=== PATIENT | female | born 1955 | race Caucasian/White ===

== ENCOUNTER 2017-07-13 05:53 | Inpatient (IN) | payer BC, OTHER ==
[2017-07-13] VITALS (7 sets, daily range): BP systolic 126–146; BP diastolic 59–68
[~2017-07-13] VITALS: Ht 162.6 cm; Wt 57.2 kg
--- NOTE | ~2017-07-13 | S ---
[facility] [place] [address] SURGICAL PATH RPT PROCEDURE Name: MERLY COTTO Room #: 403-P ADM IN M.R.#: [id number] Admission: 07/14/17 Date of : 57 Discharge: Report #: [id number] Path Case #: [id number] PATHOLOGY REPORT COLLECTION DATE: 07/13/2017 RECEIVED DATE: 07/13/2017 SUBMITTING PHYS: Dr. Khai Mota OTHER PHYS: Dr. Ana Ivory SPECIMEN(S) RECEIVED: A.Gallbladder * * * * * * * * * * * * FINAL DIAGNOSIS: Gallbladder, cholecystectomy: - Mild chronic cholecystitis. PATHOLOGIST: Jessica Rossi M.D. REPORT ELECTRONICALLY SIGNED BY: Jessica Rossi M.D. DATE/TIME: 07/14/2017 15:53 * * * * * * * * * * * * GROSS PATHOLOGY: Received in formalin labeled "Merly Cotto gallbladder," is a 6.2 x 3.5 x 1.8 cm, previously opened gallbladder with wrinkled to shaggy, pale weber to green-weber serosal surfaces. Opening the gallbladder reveals a velvety, pale green to yellow-brown mucosa and an average wall thickness of 0.1 cm. Calculi are not present and no masses are noted grossly. Due to the nature of the specimen, the infundibulum cannot be identified grossly. Setter Automatic Spinning Lathe sections from the body and fundus are submitted along with the proximal margin in cassette A1. (DAC; 07/13/2017) CLINICAL HISTORY: Cholecystitis, ureteral calculi INITIAL CPT CODE(S): A; 05010 Professional services performed by [facility] at [facility] [address], [place] [address] Technical services performed by [facility] at [address] [place] [address] [place] [address] SURGICAL PATH RPT PROCEDURE Name: MERLY COTTO Room #: 403-P ADM IN .R.#: [id number] Admission: 07/14/17 Date of : 57 Discharge: Report #: [id number] Path Case #: [id number] [place] [address]. [facility] [address] [place] [address] PHONE: [phone] DIRECTOR: Oliverio Hogan M.D. * * * END OF REPORT * * *
--- NOTE | ~2017-07-13 | O ---
[facility] [place] [address] OPERATIVE REPORT Name: PEDRO LEON Abdifatah Room #: 403-P [facility]..#: [id number] Admission: 07/14/17 Attend Phys: Khai Mota MD Discharge: 07/15/17 Date of : 57 Report #: [id number] THIS REPORT FOR: //name// CC: Deb Mota PREOPERATIVE DIAGNOSIS: Left distal ureteral calculus. POSTOPERATIVE DIAGNOSIS: Left distal ureteral calculus. PROCEDURE PERFORMED: 1. Cystoscopy. 2. Left ureteral dilation. 3. Left ureteroscopy with stone extraction and stent placement. ESTIMATED BLOOD LOSS: None. SPECIMEN: Left ureteral stone. COMPLICATIONS: None. CLINICAL SCENARIO: The patient is a very pleasant 61-year-old female who initially developed symptoms of renal colic approximately 3 months ago. The stone was thought to have passed, but she had some lingering symptoms. When we saw each other, we therefore did followup imaging, which showed persistent stone. After discussing the risks and benefits, she has opted to proceed with left ureteroscopy with stone extraction. NARRATIVE OF EVENTS: After proper patient identification and informed consent was obtained, the patient was brought to the operative suite and anesthesia was induced. She was prepped and draped in the usual sterile fashion in dorsal lithotomy position. After surgical timeout, we began with rigid cystoscopy. The bladder mucosa showed no specific abnormality. We turned our attention to the left ureteral orifice. A sensor wire was advanced through it into the renal pelvis under fluoroscopy. I could see a radiopaque calculus within the distal ureter when performing this portion of the procedure. I then attempted to advance the semirigid ureteroscope. The ureteral orifice; however, was quite narrow. I therefore opted to proceed with balloon dilation. This was complete and I was able to advance the scope into the distal ureter to an area just below the stone. It appeared that this was the area that the stone had been impacted for this time and again I was unable to advance the scope through that area. I therefore again balloon dilated that area in the distal ureter. The semirigid ureteroscope then advanced easily. The stone was identified, was captured within the basket and removed intact. I then replaced the semirigid ureteroscope and inspected the ureter throughout its length. It appeared wide open above the level of the stone. No mucosal irregularities were identified. [address] [address] OPERATIVE REPORT Name: WINSTON LEONSravanthi Gardiner Room #: 403-P [facility] IN .R.#: [id number] Admission: 07/14/17 Attend Phys: Khai Mota MD Discharge: 07/15/17 Date of : 57 Report #: [id number] The remaining guidewire was then used to place a 6 x 26 double-J ureteral stent. The stent had good curl in the renal pelvis as well as the bladder upon deployment. The stent was left on a dangle. Her bladder was drained and the case was turned over to Dr. Mota for his planned laparoscopic cholecystectomy. <ELECTRONICALLY SIGNED> By: Ana Ross MD 09/09/17 1232 0849 0924 Ana Ross MD /nt
--- NOTE | ~2017-07-13 | H ---
[facility] [place] [address] HISTORY AND PHYSICAL Name: PEDRO LEON Room #: 403-P [facility] IN .R.#: [id number] Admission: 07/14/17 Attend Phys: Khai Mota MD Discharge: 07/15/17 Date of : 57 Report #: [id number] THIS REPORT FOR: //name// CC: Deb Awad MD DATE OF SERVICE: 07/13/2017 PREOPERATIVE DIAGNOSES: 1. Cholecystitis, acalculous. 2. Left ureteral stone. HISTORY OF PRESENT ILLNESS: The patient is a 61-year-old who was seen in the office about a week ago. She has been complaining of acid reflux for 3-4 years. Last 2 months, she has had more epigastric achy pain going to the right upper quadrant and the right part of her back. The pain came on after one episode when she ate steak that was kind of greasy. This was associated with nausea, vomiting and diarrhea. Recently episode occurred of pain after eating Icelandic food. She has had decreased appetite with also weight loss over the last couple of months. She has a continued irritation feeling. The patient had evaluation. Ultrasound did not show any stone. PIPIDA scan showed a 50% gallbladder ejection fraction. She says she was having pain already before the test in her abdomen. Also, the patient's mother did have gallbladder disease and had gallstones, gallbladder removed approximately the same age as the patient is now. The patient's history is consistent with gallbladder disease. She is recommended to have gallbladder removed. PAST MEDICAL HISTORY: She has had a history of intracranial bleed in 2010. Apparently no procedure was required and she got over it. She has history of kidney stones; she has history of high blood pressure. Denied any heart disease, denied diabetes, denied lung disease, denied liver disease, denies a history of deep venous thrombosis. MEDICATION: Singulair 10 mg once a day, metoprolol 50 mg once a day, Butal/APAP/caffeine 5/325/40, bupropion 150 mg, trazodone 100 mg. ALLERGIES: PENICILLIN, WHICH GAVE HER HIVES AND PERCOCET, WHICH CAUSED ITCHING. PAST SURGICAL HISTORY: Hysterectomy and bladder surgery in 2004, bunion surgery in 2010, colonoscopy 02/2017. FAMILY HISTORY: There is heart disease. Mother had gallbladder disease. SOCIAL HISTORY: She works as a in store banker. She does not smoke or drink. [facility] [address] [place] [address] HISTORY AND PHYSICAL Name: PEDRO LEON Room #: 403-P [facility] IN [facility]#: [id number] Admission: 07/14/17 Attend Phys: Khai Mota MD Discharge: 07/15/17 Date of : 57 Report #: [id number] REVIEW OF SYSTEMS: She does complain that anesthetic generally makes her sick feeling. No chest pain, shortness of breath, palpitation. No numbness or weakness. No headache or blurred vision. PHYSICAL EXAMINATION: GENERAL: The patient is a well-nourished female, in no acute distress. HEENT: Pupils react to light. Extraocular muscles are intact. Sclerae are nonicteric. NECK: Soft and supple. No masses. LUNGS: Clear to auscultation. No wheezes, rhonchi. HEART: Regular rate and rhythm. No murmur or gallop. Normal S1, S2. ABDOMEN: The patient does have moderate tenderness in right upper quadrant where the gallbladder is located. No rigidity, no rebound, no ascites. EXTREMITIES: No cyanosis, clubbing or edema. NEUROLOGICAL: The patient moves all extremities well. Sensation is intact. IMPRESSION: The patient is a 61-year-old who for the last several months has had increasing pain in the epigastric area going to her right upper quadrant. She has a history of 3-4 years of having acid reflux. Her pain currently is associated with greasy foods. The patient's symptoms have increased and she now has a poor appetite, she is losing weight. She is also identified to have a kidney stone in the distal ureter. The patient was scheduled to have the stone extracted. Because of the symptoms that are consistent with gallbladder attack, I recommended she have these 2 procedures together so she would have one anesthetic. She was very interested in this. We were able to work out with Dr. Das, the urologist, to have the surgery done here at [facility]. The patient understands the gallbladder surgery, the risks involved including bleeding, infection, common bile duct injury, risk of bile leak. The patient wishes to proceed. The patient will be given preoperative antibiotic of Levaquin before surgery. <ELECTRONICALLY SIGNED> By: Khai Mota MD 08/04/17 1513 58 23 Khai Mota MD /nt
--- NOTE | ~2017-07-13 | EKG ---
[address] [address] ELECTROCARDIOGRAM REPORT Name: PEDRO LEON Room #: 150-5 [facility]#: [id number] Admission: 07/13/17 Attend Phys: Khai Mota MD Discharge: Date of : 57 Report #: [id number] THIS REPORT FOR: //name// [facility] Test Date: 2017-07-13 Test Time: 06:37:49 Pat Name: PEDRO LEON Department: Room: 150 5 Gender: F Database Specialist: BIGG : 1955 Requested By: Khai Mota Order Number: [id number] MD: Suleiman Blunt Measurements Intervals [place] Rate: 57 P: 61 [place]: 136 QRS: 63 QRSD: 83 T: 60 QT: 446 QTc: 435 Interpretive Statements Sinus rhythm Abnormal R-wave progression, early transition Compared to ECG 08/08/2008 10:42:56 No significant changes Electronically Signed On 07-13-2017 9:00:11 [employer]MENT SERVIC[employer] by Suleiman Blunt [email or web address] <ELECTRONICALLY SIGNED> By: Suleiman Blunt MD, [facility] 07/13/17 0900 6 6 Suleiman Blunt MD, [facility] /EPI
--- NOTE | ~2017-07-13 | O ---
[facility] [place] [address] OPERATIVE REPORT Name: PEDRO LEON Room #: 403-P [facility] IN ..#: [id number] Admission: 07/14/17 Attend Phys: Khai Mota MD Discharge: 07/15/17 Date of : 57 Report #: [id number] THIS REPORT FOR: //name// CC: Deb Awad MD DATE OF SERVICE: 07/13/2017 PREOPERATIVE DIAGNOSIS: Cholecystitis, acalculous. POSTOPERATIVE DIAGNOSIS: Cholecystitis with cholesterolosis. Thickening of the cystic duct. PROCEDURES PERFORMED: Laparoscopic cholecystectomy with cholangiogram. ANESTHESIA: General. SURGEON: Khai Mota MD COMPLICATIONS: None. ESTIMATED BLOOD LOSS: 5 mL. PROCEDURE NOTE: With the patient under general anesthesia after her kidney stone retrieval, abdomen was prepped and draped in sterile fashion. The patient received IV antibiotics and this should cover the gallbladder well. Timeout was performed. A 0.25% Marcaine was used to anesthetize the skin underneath the umbilicus. A 1.5 cm incision was made. Fascia was identified, grasped with hemostat. Fascia was then opened under visualization, 0 Vicryl suture placed on the fascia edges for retraction. Veress needle was then placed through the rest of the abdominal wall and peritoneum. Abdominal cavity was insufflated with CO2 without difficulty. After creating pneumoperitoneum, a 11 mm trocar was placed into the pneumoperitoneum. No harms on the tissue. Two 5 mm trocars were placed in right upper quadrant and a 5 mm trocar placed in right epigastrium. The patient was placed in the reverse Trendelenburg position, right side tilted up. The gallbladder was identified and lifted over the liver. The peritoneum was dissected free over the cystic duct. The cystic duct gallbladder junction was adhesed and folded on itself. This was opened up. An opening was made and clip was placed between the junction of cystic duct to the gallbladder after the cystic duct was isolated. Opening was made in the cystic duct. The initial site where I attempted to open the cystic duct was pretty thickened scar. I went slightly proximal. A cholangiogram catheter was then placed. I was only able to get the cholangiogram catheter tip in. A clip was used to hold this in [address] [address] OPERATIVE REPORT Name: CAROLYNPEDRO L Room #: 403-P [facility] IN ..#: [id number] Admission: 07/14/17 Attend Phys: Khai Mota MD Discharge: 07/15/17 Date of : 57 Report #: [id number] Fluoroscopic cholangiogram was taken. The reason why the catheter would not thread very much is because it was saw tooth or tortuous looking. The common duct filled out well. I do not see any definite stones or filling defect. The report came back as possible filling defect, but the patient does not have any gallstones in her gallbladder. Probably an air bubble. No further intervention is needed. The catheter was removed. The proximal cystic duct was then clipped x 2 and divided. I believe thickening the cystic duct and also the tortuous saw tooth appearance is probably responsible for her gallbladder dysfunction. The proximal cystic duct was then clipped and divided. The cystic artery was found adjacent to this. This was also clipped x 2 proximally, 1 distally and then divided. The right hepatic artery was identified close to this area, but preserved from harm. There was a posterior branch that was also clipped and divided. Gallbladder free from the liver bed. Gallbladder was retrieved through the infraumbilical port. I did open the gallbladder carefully at the end of the case and the cystic duct did show thickening and fibrosis and a small focal spot, about 1 mm in length. There is a 2 mm cholesterol material that was identified forming a polyp. The liver bed was checked, hemostasis excellent. Irrigation was performed. Irrigation was aspirated out. Trocars removed with evacuation of CO2 as much as possible. Infraumbilical fascia defect was closed with [id number] 0 Vicryl x 2. Skin was irrigated, closed with 5-0 PDS. Steri-Strip, Band-Aids applied. The patient tolerated procedure well. <ELECTRONICALLY SIGNED> By: Khai Mota MD 08/04/17 1513 2143 01 Khai Mota MD /nt
[~2017-07-13 05:53] MED LIST: BUTALB-CAFF-AC1 EACH PO; PROTONIX40 M1 PO; SINGULAIR 10 MG10 M1 PO; TOPROL XL50 MG PO; TRAZODONE HCL100 MG PO; VITAMIN D-32000 UNIT PO; WELLBUTRIN SR150 MG PO
[2017-07-13 06:50] LABS: HEMATOCRIT 38.4 % (37.0-47.0); HEMOGLOBIN 12.7 gm/dL (12.0-15.0)
[2017-07-14 02:15] VITALS: BP 114/50
[2017-07-14 04:00] VITALS: BP 121/48
[2017-07-14 08:00] VITALS: BP 130/57
[2017-07-14 16:00] VITALS: BP 114/54
[2017-07-14 19:47] VITALS: BP 121/65
[2017-07-15 04:00] VITALS: BP 128/57
[2017-07-15 10:19] VITALS: BP 117/62
[2017-07-15] MEDS ORDERED: NORCO 5-325 TA1 EACH PO (13:32)
[2017-07-15 13:45] VITALS: BP 117/62
[2017-07-21 14:12] LABS: STONE CA OXALATE DIHYDRATE 20 % (()); STONE CA OXALATE MONOHYDRATE 70 % (()); STONE CALCIUM PHOSPHATE 10 % (()); STONE COLOR Brown (()); STONE SIZE 6x4x3 mm (())
== END 2017-07-15 15:30 | disposition home or self-care (01) | DRG 418 ==
LOC: TBA 05:53 → OR 05:53 → 4N 05:53 → OR 13:57 → 4N 15:56 → OR 07-14 12:00 → ENTRNSPT 07-15 15:23 → 4N 07-15 15:30
PROVIDERS: Surgery
PROC: 0T778DZ Dilation of Left Ureter with Intraluminal Device, Via Natural or Artificial Opening Endoscopic (ICD-10-PCS; principal; 2017-07-13)
PROC: 0TC78ZZ Extirpation of Matter from Left Ureter, Via Natural or Artificial Opening Endoscopic (ICD-10-PCS; 2017-07-13)
PROC: BF121ZZ Fluoroscopy of Gallbladder using Low Osmolar Contrast (ICD-10-PCS; 2017-07-13)
PROC: 0FT44ZZ Resection of Gallbladder, Percutaneous Endoscopic Approach (ICD-10-PCS; 2017-07-13)
DX: K81.9 Cholecystitis, unspecified (principal); N20.1 Calculus of ureter; R33.9 Retention of urine, unspecified; Z86.718 Personal history of other venous thrombosis and embolism; Z88.0 Allergy status to penicillin; Z90.710 Acquired absence of both cervix and uterus; Z82.49 Family history of ischemic heart disease and other diseases of the circulatory system; Z83.79 Family history of other diseases of the digestive system; Z79.899 Other long term (current) drug therapy; Z88.6 Allergy status to analgesic agent
CPT/HCPCS: 10790; 50010; 50101; 50164; 50411; 50478; 50555; 50558; 51179; 51489; 51767; 53307; 53310; 55245; 55317; 56462; 56525; 56526; 62110; 62900; 70005

== ENCOUNTER 2017-08-11 13:41 | Inpatient (IN) | payer BC, OTHER ==
--- NOTE | ~2017-08-11 | S ---
[facility] [address] [address] SURGICAL PATH RPT PROCEDURE Name: PEDRO COTTO Room #: 405-P DIS IN M.R.#: [id number] Admission: 08/11/17 Date of : 57 Discharge: 08/12/17 Report #: [id number] Path Case #: [id number] PATHOLOGY REPORT COLLECTION DATE: 08/12/2017 RECEIVED DATE: 08/12/2017 SUBMITTING PHYS: Dr. Sarina Castaneda OTHER PHYS: Dr. Damon Mota ADDENDUM REPORT (Order Date: 08/16/2017 14:21) ADDENDUM COMMENT: Properly controlled immunohistochemical stains are performed. H. pylori (block C1) - negative for organisms H. pylori (block D1) - negative for organisms The final diagnosis remains unchanged. (CLW:pit; 08/16/2017) Professional services performed by [facility] at [facility] [address], [place] [address] Technical services performed by [facility] at [address] [place] [address], [address] [place] [address]. ELECTRONICALLY SIGNED BY: Marian Lara M.D. DATE/TIME:08/16/2017 21:14 SPECIMEN(S) RECEIVED: A.Bx of duodenum R/O sprue/celiac B.Bx of gastric polyps C.Random bx distal gastric polyps R/O autoimmune gastritis D.Random bx proximal gastric polyps R/O autoimmune gastritis * * * * * * * * * * * * FINAL DIAGNOSIS: A. "BX of duodenum R/O sprue/celiac", biopsy: - Small bowel mucosa with minimal histologic alterations; no evidence of celiac sprue. B. "BX of gastric polyps", biopsy: - Gastric fundic gland polyps. C. "Random BX distal gastric polyps R/O autoimmune gastritis", biopsy: - Gastric mucosa with mild reactive changes and mild chronic inflammation (see comment). D. "Random BX proximal gastric polyps R/O autoimmune gastritis", biopsy: [address] [address] SURGICAL PATH RPT PROCEDURE Name: PEDRO COTTO Abdifatah Room #: 405-P [facility] IN .R.#: [id number] Admission: 08/11/17 Date of : 57 Discharge: 08/12/17 Report #: [id number] Path Case #: [id number] - Gastric mucosa with mild reactive changes and mild chronic inflammation (see comment). COMMENT: The gastric mucosa within the random biopsies (specimen C and D) are similar histologically. There are mild reactive changes and mild chronic inflammation. No increased plasmacytic infiltrate or other findings to suggest autoimmune gastritis are identified. Immunohistochemical stains for H. pylori are pending and will be reported as an addendum. Clinical and endoscopic correlation is required. Specimens C and D are co-reviewed with Dr. Jessica Rossi. (CLW:rishi; 08/13/2017) PATHOLOGIST: Marian Lara M.D. REPORT ELECTRONICALLY SIGNED BY: Marian Lara M.D. DATE/TIME: 08/13/2017 13:43 * * * * * * * * * * * * GROSS PATHOLOGY: A. Received in formalin labeled "Pedro Cotto, BX of duodenum, rule out celiac sprue," are 2 segments of weber soft tissue measuring 0.6 x 0.3 x 0.2 cm in aggregate dimensions and ranging from 0.2 to 0.4 cm in maximum dimension. The specimen is submitted entirely in cassette A1. B. Received in formalin labeled "Pedro Cotto, BX of gastric polyps," are 7 segments of weber soft tissue measuring 1.5 x 1.7 x 0.3 cm in aggregate dimensions and ranging from 0.3 to 0.5 cm in maximum dimension. The specimen is submitted entirely in cassette B1. C. Received in formalin labeled "Pedro Cotto, BX of distal gastric polyps, rule out autoimmune gastritis," are 4 segments of weber soft tissue measuring 1.4 x 0.5 x 0.3 cm in aggregate dimensions and ranging from 0.3 to 0.8 cm in maximum dimension. The specimen is submitted entirely in cassette C1. D. Received in formalin labeled "Pedro Cotto, BX of proximal gastric polyps, rule out autoimmune gastritis," are 2 segments of weber soft tissue measuring 1.1 x 0.4 x 0.3 cm in aggregate dimensions and ranging from 0.3 to 0.6 cm in maximum dimension. The specimen is submitted entirely in cassette D1. (TSD; 08/12/2017) CLINICAL HISTORY: Abdominal pain, s/p cholecystectomy INITIAL CPT CODE(S): A; [address] [address] SURGICAL PATH RPT PROCEDURE Name: PEDRO COTTO Room #: 405-P DIS IN M.R.#: [id number] Admission: 08/11/17 Date of : 57 Discharge: 08/12/17 Report #: [id number] Path Case #: [id number] B; [id number] C; [id number], [id number] D; [id number], [id number], [id number] Professional services performed by [facility] at [facility] [address], [place] [address] Technical services performed by [facility] at [address] [place] [address], [place] [address]. [facility] [address] [place] [address] PHONE: [phone] DIRECTOR: Oliverio Hogan M.D. * * * END OF REPORT * * *
--- NOTE | ~2017-08-11 | H ---
[facility] [place] [address] HISTORY AND PHYSICAL Name: PEDRO LEON Room #: 405-P [facility] IN ..#: [id number] Admission: 08/11/17 Attend Phys: Khai Mota MD Discharge: 08/12/17 Date of : 57 Report #: [id number] THIS REPORT FOR: //name// CC: Khai Awad MD DATE OF SERVICE: 08/11/2017 REASON FOR CONSULTATION: Abdominal pain, epigastric going to her back post-cholecystectomy about 4 weeks ago. HISTORY OF PRESENT ILLNESS: The patient is a 61-year-old who is status post laparoscopic cholecystectomy on 07/13/2017. The patient also had a left ureteral stone removed. Postoperatively, the patient did have problem with urinary retention and had to go home with catheter. She was recovering and was doing well until Wednesday night. She developed severe pain in the epigastric area coming up into the lower part of the chest and going to her back. This was sharp and cramping. She is feeling tired. No fevers or chills. No nausea or vomiting. Her bowels have been working. She denies any diarrhea. When the pain did get better, she went to the Emergency Room at [facility]. The patient had a CT of the chest with PE protocol, which was negative for any pulmonary embolus. The patient's abdominal CT shows the gallbladder to be surgically removed. There is no fluid in the gallbladder fossa. Mild prominence of the right collecting system. Slight increased stool. Her CT scan was reviewed with Dr. Bonds. Her pain came back this morning and she has had continued episodes. Her liver function from the Emergency Room showed slight elevation in SGPT, normal bilirubin. Because of her continued pain, I recommend she be admitted for further workup. This could be retained small stones. Her operative cholangiogram at the time of surgery was difficult and because of the placement of the catheter, was limited. I could only get the tip of the cholangiogram catheter in a little bit because of the tortuous appearance of the cystic duct. There was a question of distal filling defect that has been reviewed also. She was made aware of that at the time of surgery. The patient is being admitted for workup. PAST MEDICAL HISTORY: She has a history of intracranial bleed in 2000. Does have a history of kidney stone. History of high blood pressure. MEDICATIONS: Singulair, metoprolol 50 mg once a day, bupropion. ALLERGIES: SHE IS ALLERGIC TO PENICILLIN AND PERCOCET. PAST SURGICAL HISTORY: Hysterectomy in 2004, bunion surgery in 2010, colonoscopy in 2016, recent gallbladder surgery on 07/05/2017 and also stone retrieval from the left ureter. [address] [address] HISTORY AND PHYSICAL Name: WINSTON LEONSravanthi Gardiner Room #: 405-P [facility] IN M.R.#: [id number] Admission: 08/11/17 Attend Phys: Khai Mota MD Discharge: 08/12/17 Date of : 57 Report #: [id number] SOCIAL HISTORY: The patient does not smoke or drink. She works as a business banking relationship manager. PHYSICAL EXAMINATION: GENERAL: The patient is not in acute distress, although she does appear to be uncomfortable. HEENT: Pupils react to light. Extraocular muscles are intact. NECK: Soft and supple, no masses. LUNGS: Clear to auscultation. HEART: Regular rate and rhythm. ABDOMEN: She does have moderate tenderness right upper quadrant and epigastric area. There is no mass, guarding or rigidity. No ascites. Incisions have healed well. It is difficult to tell if her epigastric tenderness is from the incision site, one thinks so at this point. EXTREMITIES: No cyanosis, clubbing or edema. IMPRESSION AND PLAN: The patient is a 61-year-old who is about 4 weeks post-gallbladder surgery. She has pain that started Miller night and was quite severe. She went to the Emergency Room. Since then, she has had several other episodes of this pain. Because of the persistent nature of the pain, I am recommending she be admitted for evaluation. We will need to evaluate her bile duct, probably the best way as an MRCP. Pain medications ordered, IV fluids ordered. We will place a GI consult for EGD and possible ERCP. <ELECTRONICALLY SIGNED> By: Khai Mota MD 09/17/17 1426 1655 1720 Khai Mota MD /nt
--- NOTE | ~2017-08-11 | P ---
[facility] [place] [address] PROCEDURE REPORT Name: PEDRO LEON Room #: 405-P [facility] IN M.R.#: [id number] Admission: 08/11/17 Attend Phys: Khai Mota MD Discharge: 08/12/17 Date of : 57 Report #: [id number] THIS REPORT FOR: //name// CC: Khai Awad MD DATE OF SERVICE: 08/12/2017 PROCEDURE: EGD with biopsies. INDICATION FOR PROCEDURE: Epigastric abdominal pain that radiates around the right side into the back, negative MRCP status post cholecystectomy. DESCRIPTION OF PROCEDURE: Informed consent for this procedure was obtained prior to the administration of any medication. The risks of the procedure which include bleeding, perforation, infection, complications of sedation and the possibility I could miss something have been explained to the patient and she has indicated her consent by signing. Propofol was slowly titrated before and during this procedure for patient comfort by the anesthesia service. The [place] upper videoscope was introduced through the upper esophageal sphincter and advanced under direct visualization to the descending duodenum. Findings are noted on withdrawal of the scope. The duodenum is normal in appearance. There is bile in the lumen of the duodenum. Biopsies were obtained x 2 for histopathology to evaluate for celiac sprue. Good hemostasis was noted after those biopsies. Pylorus, normal mucosa. Generally, there are some streaks of black blood in the stomach that appeared to be from some gastritis. There were multiple polyps in the stomach that looked like benign fundic gland polyps. I biopsied about 10 of these to make sure that that is what they were. There is diffuse mucosal edema and erythema that is worse in the distal stomach and in the proximal biopsies were obtained x 4 from the antrum for histopathology to rule out autoimmune gastritis. Biopsies were obtained x 2 from the proximal stomach to rule out autoimmune gastritis. Good hemostasis was noted after all of those biopsies. Retroflex view did not reveal any significant hiatal hernia. The scope was withdrawn to the esophagus. The esophageal mucosa appears normal throughout its entirety. The scope was withdrawn. The patient went to the recovery area in stable condition. She tolerated the procedure well. IMPRESSION: 1. Normal appearing duodenum, biopsies for celiac sprue obtained. 2. Streaks of black blood in the stomach that appeared to be from some mild gastritis. There are multiple polyps in the stomach that looked like benign fundic gland polyps and biopsies were obtained of these as well as the distal [address] [address] PROCEDURE REPORT Name: PEDRO LEON Room #: 405-P [facility] IN M.R.#: [id number] Admission: 08/11/17 Attend Phys: Khai Mota MD Discharge: 08/12/17 Date of : 57 Report #: [id number] and proximal stomach for histopathology and the esophagus appeared normal. My recommendations were to await the biopsy results. We will start her on proton pump inhibitors. We will start Actigall 300 mg 1 p.o. daily for 1 month in case she has some bile duct sludge that needs to be resolved since her cholecystectomy, was started on diet as tolerated, she can go home today from our standpoint. From the GI standpoint, she will follow up with Dr. Weaver if any future problems develop. Dr. Weaver's card was given to the patient. Thank you very much once again for allowing me to participate in her care, Dr. Mota. <ELECTRONICALLY SIGNED> By: Sarina Castaneda DO 09/01/17 2212 [id number] Sarina Castaneda DO /nt
[~2017-08-11 13:41] MED LIST changes: +NORCO 5-325 TA1 EACH PO
[2017-08-11 13:55] VITALS: BP 138/73
[2017-08-11 14:47] LABS: HEMATOCRIT 40.6 % (37.0-47.0); HEMOGLOBIN 13.4 gm/dL (12.0-15.0); MCHC 32.9 g/dL (28.0-37.0); MCV 94.2 fL (80.0-100.0); RBC 4.31 mil/uL (4.20-5.00); RDW 13.3 % (10.5-14.5); WBC 6.8 thou/uL (4.0-11.0)
[2017-08-11 14:57] LABS: CALCIUM 9.1 mg/dL (8.5-10.1); CREATININE 0.9 mg/dL (0.6-1.0); TOTAL BILIRUBIN 0.5 mg/dL (<0.1-1.0); TOTAL PROTEIN 7.1 g/dL (6.4-8.2)
[2017-08-11 20:00] VITALS: BP 130/73
[2017-08-12 04:00] VITALS: BP 133/96
[2017-08-12 05:25] LABS: HEMATOCRIT 39.2 % (37.0-47.0); HEMOGLOBIN 12.9 gm/dL (12.0-15.0); MCH 31.1 pg (26.0-34.0); MCHC 32.9 g/dL (28.0-37.0); MCV 94.5 fL (80.0-100.0); RBC 4.15 mil/uL (4.20-5.00); RDW 13.3 % (10.5-14.5); WBC 5.9 thou/uL (4.0-11.0)
[2017-08-12 05:40] LABS: ALBUMIN 3.5 g/dL (3.4-5.0); DIRECT BILIRUBIN < 0.1 mg/dL (<0.1-0.3); LIPASE 144 U/L (73-393); SGOT 32 U/L (15-37); SGPT 63 U/L (30-65); TOTAL BILIRUBIN 0.4 mg/dL (<0.1-1.0); TOTAL PROTEIN 6.3 g/dL (6.4-8.2)
[2017-08-12 08:45] VITALS: BP 113/63
[2017-08-12 13:15] VITALS: BP 124/57
[2017-08-12 13:30] VITALS: BP 125/55
[2017-08-12 14:00] VITALS: BP 136/63
[2017-08-12] MEDS ORDERED: URSODIOL300 MG PO (14:14)
[2017-08-12 14:46] VITALS: BP 124/57
== END 2017-08-12 17:15 | disposition home or self-care (01) | DRG 392 ==
LOC: 4N 13:41 → ENTRNSPT 08-12 16:59 → 4N 08-12 17:15
PROVIDERS: Nurse Practitioner; Surgery
PROC: 0DB98ZX Excision of Duodenum, Via Natural or Artificial Opening Endoscopic, Diagnostic (ICD-10-PCS; principal; 2017-08-12)
PROC: 0DB68ZX Excision of Stomach, Via Natural or Artificial Opening Endoscopic, Diagnostic (ICD-10-PCS; principal; 2017-08-12)
DX: K29.70 Gastritis, unspecified, without bleeding (principal); G43.909 Migraine, unspecified, not intractable, without status migrainosus; F32.9 Major depressive disorder, single episode, unspecified; K21.9 Gastro-esophageal reflux disease without esophagitis; I10 Essential (primary) hypertension; Z87.442 Personal history of urinary calculi; Z88.0 Allergy status to penicillin; Z88.8 Allergy status to other drugs, medicaments and biological substances; Z90.710 Acquired absence of both cervix and uterus; Z88.6 Allergy status to analgesic agent; Z90.49 Acquired absence of other specified parts of digestive tract; Z86.73 Personal history of transient ischemic attack (TIA), and cerebral infarction without residual deficits
CPT/HCPCS: 10790; 62110; 70005

== ENCOUNTER → 2017-09-08 | Outpatient (CLI) | payer BC, OTHER ==
[~2017-09-08] MED LIST changes: +URSODIOL300 MG PO
--- NOTE | ~2017-09-08 | P ---
[facility] [place] [address] PROCEDURE REPORT Name: PEDRO LEON Room #: REG [facility]#: [id number] Admission: 09/08/17 Attend Phys: Dom Roldan MD Discharge: Date of : 57 Report #: [id number] THIS REPORT FOR: //name// CC: Dom Enriquez BRIEF HISTORY: The patient is a 61-year-old woman who underwent recent laparoscopic cholecystectomy for upper abdominal pain. Interestingly, following her cholecystectomy, she developed biliary colic type pain with severe bouts of epigastric pain with radiation into her back. It is noted that on the intraoperative cholangiogram, although it was a limited study, there was a small filling defect seen fluoroscopically, but not well demonstrated on the images per Dr. Mota. Subsequently, an MRCP was done, which was negative. Also, an EGD was done, which was negative. She has continued to have biliary type symptoms in spite of the negative studies. PREOPERATIVE DIAGNOSIS: Choledocholithiasis and abdominal pain. POSTOPERATIVE DIAGNOSES: 1. Choledocholithiasis and abdominal pain. 2. Periampullary duodenal diverticulum. MEDICATIONS: General anesthesia and intubation per anesthesia, SPECIMEN: None. ESTIMATED BLOOD LOSS: None. PROCEDURE: ERCP with endoscopic sphincterotomy and sweep of the bile duct. FINDINGS: Prior to intubation general anesthesia, procedure of ERCP was discussed with the patient and . They have familiarity due to a family member requiring an ERCP with stone extraction in the past. Alternative endoscopic ultrasound at another institution was discussed with the patient and . We also discussed the potential risk of pancreatitis as well as other complications such as infection, bleeding and the need for surgical intervention if she develops complication. Also discussed the possibility of failure of ERCP. DESCRIPTION OF PROCEDURE: Subsequently, the Fuji side-viewing endoscope was inserted in cervical esophagus, advanced through the esophagus into the stomach, across the stomach into the duodenum. The papilla was noted to be within a small duodenal diverticulum. The papilla was identified. It had normal appearance. The orifice was seen. We initially passed the catheter to the orifice, it would not pass. A guidewire was advanced and upon first effort, the [facility] [address] [place] [address] PROCEDURE REPORT Name: PEDRO LEON Abdifatah Room #: REG [facility]#: [id number] Admission: 09/08/17 Attend Phys: Dom Roldan MD Discharge: Date of : 57 Report #: [id number] guidewire went deeply into the common bile duct. The catheter was then advanced over the guidewire into the common hepatic duct just below the bifurcation. Contrast was injected and there was noted to be a small filling defect in the region of the common hepatic duct. In addition, her extrahepatic biliary tree was in the range of about 5 mm. There was no intrahepatic ductal dilation. We then brought the sphincterotome back and completed a sphincterotomy with good hemostasis and no bleeding. We subsequently drug a balloon through the biliary tree on three occasions. I was able to pull an 8.5 mm balloon through the sphincterotomy. With multiple balloon sweeps, a definite stone was not seen. We then refilled the bile duct with tamponade with the balloon and we could no longer identify the filling defect. ____ passed unobserved or moved higher into the ductal system. If it did move higher, the sphincterotomy is more than adequate in size to allow passage of the small filling defect. It was felt that the duct was clear and the common bile duct was draining well. The scope was withdrawn. The patient tolerated the procedure well. DISPOSITION: The patient with evidence of choledocholithiasis and biliary colic symptoms. Sphincterotomy completed and the duct appears to be clear at this time. At this point, we will have her essentially be n.p.o. except for a few ice chips and sips for 4 hours and then she may move on to clear liquids and advance as tolerated. She should return for followup if she has recurrent symptoms. She will otherwise follow up with Dr. Awad. <ELECTRONICALLY SIGNED> By: Dom Roldan MD 09/17/17 1734 1342 [id number] Dom Roldan MD /nt
== END | disposition home or self-care (01) ==
LOC: GI 11:00
DX: K80.50 Calculus of bile duct without cholangitis or cholecystitis without obstruction (principal); K57.10 Diverticulosis of small intestine without perforation or abscess without bleeding
CPT/HCPCS: 62110; 62900; 70005